=== PATIENT | female | born 1995 ===

== ENCOUNTER 2018-05-01 10:21 | Emergency (ER) | payer OTHER ==
[~2018-05-01] VITALS: Ht 160 cm; Wt 59.3 kg
[~2018-05-01 10:21] MED LIST: [UNRECOGNIZED DRUG - OTHER]
[2018-05-01 10:30] VITALS: BP 115/74
[2018-05-01] MEDS ORDERED: ASPI1TAB31 PO (11:04)
[2018-05-01] MEDS ORDERED: PILO15DR24 LEFTEYE (11:04)
[2018-05-01] MEDS ORDERED: KETOROLAC 30 MG/1 ML ONE (11:17)
[2018-05-01] MEDS ORDERED: METOCLOPRAMIDE 5 MG/ML, 2ML ONE (11:17)
[2018-05-01] MEDS ORDERED: METOCLOPRAMIDE 5 MG/ML, 2ML IVPush ONE (11:30)
[2018-05-01] MEDS ORDERED: KETOROLAC 30 MG/1 ML IVPush ONE (11:30)
== END 2018-05-01 13:08 | disposition home or self-care (01) ==
LOC: ED 12:26
DX: G43.009 Migraine without aura, not intractable, without status migrainosus (principal)
CPT/HCPCS: 96374; 96375; 99284; J1885; J2765

== ENCOUNTER 2020-08-28 20:59 | Emergency (ER) | payer OTHER ==
[~2020-08-28] VITALS: Ht 154.9 cm; Wt 60.0 kg
[~2020-08-28 20:59] MED LIST changes: +ASPI1TAB31 PO; +PILO15DR24 LEFTEYE
--- NOTE | 2020-08-28 21:05 | NUR ---
PT CALLED FOR TRIAGE. NO ANSWER X 1
[2020-08-28 21:52] LABS: BASOPHILS % (AUTO) 0 % (0-1); EOSINOPHILS % (AUTO) 2 % (1-7); LYMPHOCYTES % (AUTO) 22 % (22-44); MD NO; MEAN CORPUSCULAR HEMOGLOBIN 29.6 pg (27.0-34.8); MEAN CORPUSCULAR HGB CONC 33.3 g/dL (32.4-35.8); MEAN PLATELET VOLUME 7.2 fL (7.4-10.4); MONOCYTES % (AUTO) 5 % (2-9); NEUTROPHILS % (AUTO) 72 % (42-75); PLATELET COUNT 296 x10^3/uL (130-400); RED BLOOD COUNT 4.95 x10^6/uL (3.82-5.3); RED CELL DISTRIBUTION WIDTH 13.3 % (9.6-15.2)
[2020-08-28] MEDS ORDERED: ONDANSETRON ODT 4 MG PO ONE (22:00)
[2020-08-28 22:04] LABS: ALANINE AMINOTRANSFERASE 26 U/L (12-78); ALBUMIN 3.9 g/dL (3.4-5.0); ANION GAP 3 mmol/L (5-15); CALCIUM 8.9 mg/dL (8.5-10.1); CHLORIDE 111 mmol/L (98-107); CREATININE 0.74 mg/dL (0.55-1.02)
[2020-08-28 22:09] LABS: ALKALINE PHOSPHATASE 106 U/L (45-117); BILIRUBIN,TOTAL 0.6 mg/dL (0.2-1.0)
--- NOTE | 2020-08-28 22:42 | NUR ---
pt called to room from lobby
[2020-08-28] MEDS ORDERED: ONDANSETRON ODT 4 MG ONE (22:56)
[2020-08-28] MEDS ORDERED: PROCHLORPERAZINE 5 MG/ML, 2ML IVPush ONE (23:00)
[2020-08-28] MEDS ORDERED: KETOROLAC 30 MG/1 ML IVPush ONE (23:00)
[2020-08-28] MEDS ORDERED: DIPHENHYDRAMINE 50 MG/ML, 1ML IVPush ONE (23:00)
[2020-08-28] MEDS ORDERED: DIPHENHYDRAMINE 50 MG/ML, 1ML ONE (23:05)
[2020-08-28] MEDS ORDERED: KETOROLAC 30 MG/1 ML ONE (23:05)
[2020-08-28] MEDS ORDERED: PROCHLORPERAZINE 5 MG/ML, 2ML ONE (23:05)
--- NOTE | 2020-08-28 23:17 | NUR ---
PT ZEYNEP IN [facility], CRYING. STATES SHE HAS A HX OF MIGRAINES. THE LAST TIME SHE HAD TO COME TO THE HOSPITAL FOR IT WAS 2 YEARS AGO. PT PROVIDED WITH BLANKET TO COVER EYES AND LIGHTS TURNED OFF. BOYFRIEND AT BEDSIDE.
[2020-08-29 01:04] VITALS: BP 114/66
== END 2020-08-29 01:06 | disposition home or self-care (01) ==
LOC: ED 08-29 00:30
DX: G43.009 Migraine without aura, not intractable, without status migrainosus (principal); H53.129 Transient visual loss, unspecified eye; R11.2 Nausea with vomiting, unspecified
CPT/HCPCS: 36415; 80053; 84703; 85025; 96374; 96375; 99284; J0780; J1200; J1885

== ENCOUNTER 2021-02-13 06:41 | Emergency (ER) | payer OTHER ==
[~2021-02-13] VITALS: Ht 154.9 cm; Wt 59.0 kg
[2021-02-13] MEDS ORDERED: METOCLOPRAMIDE 5 MG/ML, 2ML ONE (07:10)
[2021-02-13] MEDS ORDERED: KETOROLAC 30 MG/1 ML ONE (07:11)
--- NOTE | 2021-02-13 07:16 | NUR ---
PT C/O HEADACHE THAT STARTED YESTERDAY AM. PT ALSO HAS N/V. PT HAS A HX OF MIGRAINES.
[2021-02-13] MEDS ORDERED: SODIUM CHLORIDE 0.9% 1,000ML IVBOLUS ONE (07:30)
[2021-02-13] MEDS ORDERED: METOCLOPRAMIDE 5 MG/ML, 2ML IVPush ONE (07:30)
[2021-02-13] MEDS ORDERED: KETOROLAC 30 MG/1 ML IVPush ONE (07:30)
[2021-02-13 08:43] VITALS: BP 116/76
== END 2021-02-13 09:11 | disposition home or self-care (01) ==
LOC: ED 07:39
DX: O26.891 Other specified pregnancy related conditions, first trimester (principal); G43.909 Migraine, unspecified, not intractable, without status migrainosus; R11.2 Nausea with vomiting, unspecified; Z3A.08 8 weeks gestation of pregnancy
CPT/HCPCS: 36415; 84703; 96361; 96374; 96375; 99284; J1885; J2765; J7030

== ENCOUNTER 2021-02-24 14:52 | Emergency (ER) | payer OTHER ==
[~2021-02-24] VITALS: Ht 160 cm; Wt 58.7 kg
--- NOTE | 2021-02-24 15:16 | NUR ---
PT C/O OF CRAMPING, NAUSEA,A ND CHILLS SINCE TAKING 2ND MODERNA COVID VACCINE YESTERDAY. PAIN IS LOCATED IN LOWER ABDOMEN. LMP December.
[2021-02-24] MEDS ORDERED: ONDANSETRON 2MG/ML, 2ML ONE (15:22)
[2021-02-24] MEDS ORDERED: ONDANSETRON 2MG/ML, 2ML IVPush ONE (15:30)
[2021-02-24] MEDS ORDERED: SODIUM CHLORIDE FLUSH 10ML SYR IVF ONE (15:30)
[2021-02-24] MEDS ORDERED: SODIUM CHLORIDE 0.9% 1,000ML IVBOLUS ONE (15:30)
--- NOTE | 2021-02-24 15:34 | NUR ---
PT RESTING IN BED. TOLERATING MEDICATIONS. ATTACHED TO MONITORS. PT IN NAD. CALL LIGHT WITHIN REACH. FRIEND AT BEDISDE.
[2021-02-24 15:39] LABS: BASOPHILS % (AUTO) 0 % (0-1); EOSINOPHILS % (AUTO) 0 % (1-7); LYMPHOCYTES % (AUTO) 7 % (22-44); MEAN CORPUSCULAR HEMOGLOBIN 30.1 pg (27.0-34.8); MEAN PLATELET VOLUME 7.2 fL (7.4-10.4); MONOCYTES % (AUTO) 7 % (2-9); NEUTROPHILS % (AUTO) 86 % (42-75); PLATELET COUNT 213 x10^3/uL (130-400); RED BLOOD COUNT 4.18 x10^6/uL (3.82-5.3); RED CELL DISTRIBUTION WIDTH 12.4 % (9.6-15.2)
[2021-02-24 15:40] LABS: MD NO
[2021-02-24 15:49] LABS: ALANINE AMINOTRANSFERASE 18 U/L (12-78); ALBUMIN 3.4 g/dL (3.4-5.0); ANION GAP 8 mmol/L (5-15); CALCIUM 8.2 mg/dL (8.5-10.1); CHLORIDE 108 mmol/L (98-107); CREATININE 0.53 mg/dL (0.55-1.02)
[2021-02-24 16:06] LABS: ALKALINE PHOSPHATASE 70 U/L (45-117); BILIRUBIN,TOTAL 0.9 mg/dL (0.2-1.0); TOTAL PROTEIN 6.9 g/dL (6.4-8.2)
--- NOTE | 2021-02-24 16:44 | NUR ---
PT RESTING IN BED IN NAD. VSS. ATTACHED TO MONITORS. CALL LIGHT WITHIN REACH. BED IN LOW POSITION. BREATHING EVEN AND UNLABORED.
[2021-02-24 17:39] VITALS: BP 99/69
== END 2021-02-24 17:41 | disposition home or self-care (01) ==
LOC: ED 15:51
DX: O26.891 Other specified pregnancy related conditions, first trimester (principal); Z23 Encounter for immunization; R11.2 Nausea with vomiting, unspecified; R10.9 Unspecified abdominal pain; Z3A.01 Less than 8 weeks gestation of pregnancy
CPT/HCPCS: 36415; 76801; 80053; 84702; 85025; 96361; 96374; 99284; J2405; J7030

== ENCOUNTER 2021-03-12 14:05 | Emergency (ER) | payer OTHER ==
[~2021-03-12] VITALS: Ht 154.9 cm; Wt 58.4 kg
--- NOTE | 2021-03-12 16:26 | NUR ---
TRIAGE: CLEAN CATCH URINE OBTAINED AND SENT TO LAB
[2021-03-12 16:39] LABS: MICROSCOPIC INDICATED
[2021-03-12 17:30] LABS: BASOPHILS % (AUTO) 0 % (0-1); EOSINOPHILS % (AUTO) 2 % (1-7); LYMPHOCYTES % (AUTO) 26 % (22-44); MEAN CORPUSCULAR HEMOGLOBIN 30.2 pg (27.0-34.8); MEAN CORPUSCULAR HGB CONC 33.6 g/dL (32.4-35.8); MEAN PLATELET VOLUME 7.6 fL (7.4-10.4); MONOCYTES % (AUTO) 6 % (2-9); NEUTROPHILS % (AUTO) 65 % (42-75); PLATELET COUNT 261 x10^3/uL (130-400); RED BLOOD COUNT 4.49 x10^6/uL (3.82-5.3)
[2021-03-12 17:32] LABS: MD NO
--- NOTE | 2021-03-12 17:41 | NUR ---
clean in places operator: pt from lobby to room 21
[2021-03-12 17:56] VITALS: BP 110/66
== END 2021-03-12 18:29 | disposition home or self-care (01) ==
LOC: ED 18:00
DX: O20.0 Threatened abortion (principal); O23.41 Unspecified infection of urinary tract in pregnancy, first trimester; G43.909 Migraine, unspecified, not intractable, without status migrainosus; Z3A.09 9 weeks gestation of pregnancy
CPT/HCPCS: 36415; 76801; 81001; 84702; 85025; 86901; 87086; 99284